=== PATIENT | female | born 1950 | race African-American/Black ===

== ENCOUNTER 2019-09-10 07:57 | Day surgery (SDC) | payer OTHER ==
[2019-09-09 11:05] VITALS: BMI 44.2
[2019-09-10] MEDS ORDERED: LIDOCAINE HCL/PF 2% SDV 5ML VIAL ONE (08:02)
[2019-09-10] MEDS ORDERED: PROPOFOL 20 ML ONE ×2 (08:02)
[2019-09-10 08:30] VITALS: TEMP 98.4
[2019-09-10] MEDS ORDERED: ALBUTEROL SO4 2.5/IPRATROPIUM 0.5 INH SOL 3 ML VIAL.NEB. NEB ONE (09:00)
[2019-09-10 10:30] VITALS: PULSE 115
[2019-09-10 11:07] VITALS: BP 126/84
--- NOTE | 2019-09-14 15:46 | PATH ---
Surgical Pathology Report Patient Name: ETHAN PHILLIPS [facility]. Rec. #: [id number] /Age/Gender: 1950 (Age: 68) / F Account: [id number] Location: [facility] Taken: 09/10/2019 Received: 09/10/2019 Reported: 09/14/2019 Physicians: Mello Enciso M.D. Specimen(s) Received A: BX SECOND PORTION DUODENUM B: BX GASTRIC ANTRUM Clinical History Dysphagia Postoperative diagnosis: Gastritis, stricture Final Diagnosis A. SECOND PORTION OF DUODENUM, BIOPSY: DUODENAL MUCOSA WITH INCREASED EOSINOPHILS IN THE LAMINA PROPRIA (EOSINOPHILIC COUNT: ~30/PHF). SEE COMMENT. THE ARCHITECTURE OF THE VILLI APPEARS NORMAL. NO HISTOLOGIC EVIDENCE OF INTRAEPITHELIAL LYMPHOCYTOSIS. B. GASTRIC ANTRUM, BIOPSY: GASTRIC MUCOSA WITH CHRONIC, FOCALLY ACUTE GASTRITIS. INCREASED EOSINOPHILS IN THE LAMINA PROPRIA PRESENT (EOSINOPHILIC COUNT: 20 - 40/PHF). SEE COMMENT. IMMUNOSTAIN FOR H. PYLORI IS NEGATIVE. NEGATIVE FOR INTESTINAL METAPLASIA. Comment: Increased eosinophilic infiltrate may be seen in eosinophilic gastroenteritis, drug related gastroenteritis, food allergy, Crohn's disease, infectious etiology and other systemic diseases. Suggest clinical correlation. Electronically Signed Vadim Allen M.D. Gross Description A. Received in formalin, labeled "biopsy second portion of duodenum" is a rodriguez, irregular portion of soft tissue measuring 0.4 cm. in greatest dimension. The specimen is submitted in toto in one cassette. B. Received in formalin, labeled "biopsy gastric antrum" are 2 rodriguez, irregular portions of soft tissue averaging 0.4 cm. in greatest dimension. The specimens are submitted in toto in one cassette. 09/11/2019 [facility]09/11/2019
== END 2019-09-10 10:50 | disposition home or self-care (01) ==
LOC: FASU-ENDO 07:57
PROVIDERS: ATTEND Internal Medicine Gastroenterology
PROC: 0DB68ZX Excision of Stomach, Via Natural or Artificial Opening Endoscopic, Diagnostic (ICD-10-PCS; 2019-09-10)
PROC: 0D748DZ Dilation of Esophagogastric Junction with Intraluminal Device, Via Natural or Artificial Opening Endoscopic (ICD-10-PCS; 2019-09-10)
PROC: 0DB98ZX Excision of Duodenum, Via Natural or Artificial Opening Endoscopic, Diagnostic (ICD-10-PCS; principal; 2019-09-10 09:18)
DX: R13.10 Dysphagia, unspecified (principal); R10.13 Epigastric pain; K22.2 Esophageal obstruction; K29.50 Unspecified chronic gastritis without bleeding; D72.1 Eosinophilia
CPT/HCPCS: 88305-TC; 88342-TC

== ENCOUNTER 2020-10-03 08:20 | Day surgery (SDC) | payer OTHER ==
[2020-09-29 15:19] VITALS: BMI 44.6
[2020-10-03] MEDS ORDERED: MIDAZOLAM HCL 2 MG/2 ML SINGLE DOSE VIAL ONE (10:18)
[2020-10-03 11:33] VITALS: TEMP 98
[2020-10-03 11:35] VITALS: PULSE 108
[2020-10-03 11:37] VITALS: BP 119/68
== END 2020-10-03 12:40 | disposition home or self-care (01) ==
LOC: FASU-ENDO 08:20
PROVIDERS: ATTEND Internal Medicine Gastroenterology
PROC: 0D748ZZ Dilation of Esophagogastric Junction, Via Natural or Artificial Opening Endoscopic (ICD-10-PCS; principal; 2020-10-03 10:29)
DX: K22.2 Esophageal obstruction (principal); K44.9 Diaphragmatic hernia without obstruction or gangrene; R13.10 Dysphagia, unspecified; R12 Heartburn
CPT/HCPCS: 88305-TC; 88342-TC

== ENCOUNTER 2021-02-13 10:05 | Day surgery (SDC) | payer OTHER ==
[2021-02-08 12:29] VITALS: BMI 45.3
[2021-02-13 12:57] VITALS: TEMP 98.4
[2021-02-13 13:27] VITALS: BP 156/98; PULSE 111
== END 2021-02-13 13:32 | disposition home or self-care (01) ==
LOC: FASU-ENDO 10:05
PROVIDERS: ATTEND Internal Medicine Gastroenterology
PROC: 0DJD8ZZ Inspection of Lower Intestinal Tract, Via Natural or Artificial Opening Endoscopic (ICD-10-PCS; principal; 2021-02-13 12:36)
DX: Z86.010 Personal history of colon polyps (principal); Z83.71 Family history of colonic polyps; K64.0 First degree hemorrhoids